=== PATIENT | male | born 1990 | race Caucasian/White ===

== ENCOUNTER 2018-09-16 17:15 | Emergency (ER) | payer BC ==
[2018-09-16] MEDS ORDERED: Diphtheria/Tetanus Toxoids,Adult (Td) 0.5 ML SDV IM ONE (19:00)
--- NOTE | 2018-09-17 00:42 | ER ---
The patient is a 27-year-old male who comes in today with a fish hook stuck in his left middle finger. It is a treble hook with the lower still attached. We went ahead and injected down the shaft with some 1% plain lidocaine. This was followed by a 20-gauge needle down the shaft, which did not loosen the hook which apparently stuck in the tendon. We then used an 18-gauge needle to advance down the shaft behind the miki, and the hook popped out without difficulty. Antibiotic ointment and Band-Aid were applied. The patient was given a Tdap as he is not sure when his last tetanus was. The patient to return to clinic for any signs of infection. ASSESSMENT: Fish hook. PLAN: Removed as above. Vital signs were stable. The patient was afebrile. JOHANNA/DEVON /[id number]
== END 2018-09-16 17:55 | disposition home or self-care (01) ==
LOC: LB.ED 17:15
DX: S60.453A Superficial foreign body of left middle finger, initial encounter (principal); W45.8XXA Other foreign body or object entering through skin, initial encounter; Z23 Encounter for immunization
CPT/HCPCS: 90471; 90714; 99283-25